=== PATIENT | male | born 1965 | race African-American/Black ===

== ENCOUNTER 2024-07-14 09:05 | Emergency (ER) | payer OTHER, SELFPAY ==
[2024-07-14 09:17] VITALS: BP 181/109; PULSE 87; RESP 16; TEMP 36.6; O2SAT 100
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
--- OUTSIDE RECORDS SUMMARY | 2024-07-14 09:19 | XMS_ITS | Encounter Summary ---
Author Name [facility] [place] Organization [facility] [place] [facility] [place] Address [address] [place] [address] Support Name Relationship Address Phone JDAEN BREAUX Emergency Contact [address] [place] [address] [phone] CORINE BREAUX Next of [facility] [place] Selected Encounter This section includes the information on record at [place] for the Encounter. Date/Time Encounter Type Encounter Description Reason Provider Source Sep 29, 2023 10:00 AM CASE MANAGEMENT HCHV/HCMI INDIV ICD-10-CM Z59.02 Unsheltered homelessness MONTEZ TOMAS Evelio Encounter Template Text not used by [place] Assessments - Encounter Diagnoses This section includes the primary and secondary diagnoses documented for the Encounter. Date/Time Primary/Secondary Diagnosis Diagnosis Name Provider Source Sep 29, 2023 10:46 AM PRIMARY Unsheltered homelessness LENA TOMAS [facility] Encounter Notes: All associated encounter notes This section contains the clinical notes associated to the Encounter. Date/Time Encounter Note(s) Provider Source Sep 29, 2023 10:30 AM MENTAL HEALTH STUDIO OPERATIONS ENGINEER IN CHARGE NOTE: LOCAL TITLE: HCHV CASE MANAGEMENT STL STANDARD TITLE: MENTAL HEALTH STUDIO OPERATIONS ENGINEER IN CHARGE NOTE DATE OF NOTE: SEP 29, 2023@10:30 ENTRY DATE: SEP 29, 2023@10:30:53 AUTHOR: LENA TOMAS EXP COSIGNER: URGENCY: STATUS: COMPLETED HCHV CASE MANAGEMENT STL Has ADDENDA HOMELESS PROGRAMS HCHV Case Management Start Time: 1000 End Time: 1030 Total time: 30min Contact Number: n/a Diagnosis: z59. Mental Status Exam APPEARANCE: Dressed appropriate for the weather SPEECH: Normal AFFECT: congruent w/topic discussion MOOD: okay THOUGHT PROCESS: Clear, logical HALLUCINATIONS/DELUSIONS: Denies @ this time SUICIDALITY/HOMICIDALITY: Denies @ this time LEVEL OF ALERTNESS: Alert x 3 Mental Health: denies any current SI/HI or any immediate medical needs at this time NARRATIVE: presented to [facility] for HUDVASH screening appt on his bicycle which did not have a lock which brought his bike inside & maintained w/him during visit, states he not want anyone stealing his bike as this is his only transportation, underwriter solicitation director provided empathetic listening; underwriter solicitation director informed GPD program/liaisons have attempted to speak w/ w/no contact; states he fell out w/the individuals he was hanging around & who was letting him use their phone; underwriter solicitation director informed both HUDVASH & GPD programs will speak w/him today to complete program screenings, verbalized understanding stating i have nowhere to go & has no concerns waiting; underwriter solicitation director asked did he f/u w/eligibility dept to complete his means test, states completing test; states he was hungry which underwriter solicitation director offered a frozen meal accepted offer & was provided w/a meal & peanut butter crackers, expressed appreciation w/no questions/concerns PLAN FOR FOLLOW UP: [ ]Plan to meet again on the following date/time: [ ]No future session planned at this time [x]Other: to complete HUDVASH/GPD program screenings; hc staff to f/u w/; to contact dept as needed SAFETY REVIEW: The following health and safety issues were reviewed during session: [x] is aware that he can contact the 's Crisis hotline 24 hours per day at , press 1 for Veterans. Personal Safety: [x] indicated awareness that for life threatening emergencies, should call 911 and go to the nearest emergency department. Patient Education Documentation: [x] The patient was ready to learn when education was offered [x] Level of Understanding: good [X] Patient verbally acknowledged understanding of the education topic /MAGY Atkins, LIV Clinical Department Head [employer] Signed: 09/29/2023 10:46 09/29/2023 ADDENDUM STATUS: COMPLETED 09-29-23 1050 underwriter solicitation director offered CERS/TJC referral, declined offer stating he has too many enemies in [place] area, stating that would be a bad situation no thanks underwriter solicitation director affirmed 's choice /MAGY Atkins, LIV Clinical Department Head [employer] Signed: 09/29/2023 10:58 LENA TOMAS [facility]
--- OUTSIDE RECORDS SUMMARY | 2024-07-14 09:19 | XMS_ITS | Continuity of Care Document ---
Author Name [facility] Organization [facility] Care Team Providers Care Film Library Clerk Name Role Phone [facility] Unavailable Unavailable Problems Combined list of problems from Department of Defense and Veterans Affairs facilities. It does not include entries that were removed or entered in error. Problem Status Onset Date Problem Type Date of Resolution Comments Source [facility] DEP NEC/NOS-CONTIN Inactive 4 Condition 07/08/1995 Department of Veterans Affairs (VA) CANNABIS ABUSE-EPISODIC Inactive 4 Condition 07/24/1995 [facility] Affairs (VA) COCAINE DEPEND-CONTIN Inactive 4 Condition 07/24/1995 [facility] of Veterans Affairs (VA) + HX POLYSUBSTANCE ABUSE Active Condition July 24, 1995 Entered By: JADEN CLARK Comment: DETOX 9 [facility] Fatigue Active Condition July 23 96 Entered By: JADEN CLARK Comment: SYSTOLIC MURMURMay 1995 Entered By: JADEN CLARK Comment: R/O IHSS [facility] Homeless ([facility] [id number]) Active Condition [facility] NKA Active Condition [facility] Diagnosis: ICD-10-CM Z59.01 Sheltered homelessness Active Diagnosis [facility] Diagnosis: ICD-10-CM Z59.00 Homelessness unspecified Active Diagnosis [facility] Diagnosis: ICD-10-CM Z59.02 Unsheltered homelessness Active Diagnosis [facility] Diagnosis: ICD-10-CM Z56.9 Unspecified problems related to employment Active Diagnosis [facility] Diagnosis: ICD-10-CM Z59.9 Problem related to housing and economic circumstances, unsp Active Diagnosis [facility] Diagnosis: ICD-10-CM Z59.89 Other problems related to housing and economic circumstances Active Diagnosis [facility] Encounters Combined list of: 1) Encounters from Department of Veterans Affairs facilities going backup to the last 18 months, not all VA inpatient encounters are included; 2) Encounters from the Department of Defense facilities going backup to 280 months. Location Location Details Encounter Type Encounter Number Reason For Visit Attending Provider ADM Date DC Date Status Disposition Source [facility] Outpatient Encounter [id number] 07/30 [facility] [address] [address] [facility] PSYCHOED SVC, PER 15 MIN [id number] Diagnos is: ICD-10- CM Z59.89 Other problem s related to housing and economi c circums REYNALDO Riley [facility] 07/[address] [facility] [place] [facility] PSYCHOED SVC, PER 15 MIN [id number] Diagnos is: ICD-10- CM Z59.02 Unshelt ered homeREYNALDO Amato [facility] 09/[address] [facility] [facility] HC PRO PHONE CALL 5-10 MIN [id number] Diagnos is: ICD-10- CM Z59.9 Problem related to housing and economi c circums ricardo ann DARRY L L 09/24 [address] [facility] Outpatient Encounter [id number] 09/24 [facility] Encounter [id number] 09/27 [facility] Outpatient Encounter [id number] 09/27 [facility] CASE MANAGEMENT [id number] Diagnos is: ICD-10- CM Z59.02 Unshelt ered homeles REYNALDO Fortune [facility] 09/[address] [facility] PROGRAM INTAKE ASSESSMENT [id number] Diagnos is: ICD-10- CM Z59.02 Unshelt ered homeles sness GRZEGORZ SCHERER ONDA 09/[address] [facility] CASE MANAGEMENT [id number] Diagnos is: ICD-10- CM Z59.02 Unshelt ered homeles sness RUFUS DONATO 09/28 [facility] [address] [address] [facility] COMMUNITY/ WORK REINTEGRAT ION [id number] Diagnos is: ICD-10- CM Z56.9 Unspeci fied problem s related to employm COLE Woodruff EGORY 09/[address] [facility] Outpatient Encounter [id number] 10/04 [facility] [place] [address] [facility] CASE MANAGEMENT [id number] Diagnos is: ICD-10- CM Z59.00 Homeles sness unspeci fied NADEEM PANCHAL PATRICIA P 10/[address] [facility] CASE MANAGEMENT [id number] Diagnos is: ICD-10- CM Z59.00 Homeles sness unspeci fied ABDULKADIR,NADEEM PATRICIA P 10/[address] [facility] Outpatient Encounter [id number] ELZA LANZA ISEULALIA SILVA 10/04 [facility] [place] [address] [facility] HEALTH ASSESS BY NON-MD [id number] Diagnos is: ICD-10- CM Z59.02 Unshelt ered homeles sness NADEEM PANCHAL PATRICIA P 10/[address] [facility] Outpatient Encounter [id number] NADEEM PANCHAL PATRICIA P 10/05 [facility] Outpatient Encounter [id number] 10/06 [facility] Outpatient Encounter [id number] 10/06 [facility] Outpatient Encounter [id number] 10/15 [facility] [place] [facility] Outpatient Encounter [id number] Diagnos is: ICD-10- CM Z59.00 Homeles sness unspeci fied ARELI,CAT HERINE R 10/[address] [facility] Outpatient Encounter [id number] 10/15 [facility] Outpatient Encounter [id number] 10/25 [facility] Outpatient Encounter [id number] 10/26 [facility] Outpatient Encounter [id number] Diagnos is: ICD-10- CM Z59.01 Assisted ed homeles sness ARELI,CAT HERINE R 11/[address] [facility] Outpatient Encounter [id number] 11/04 [facility] HC PRO PHONE CALL 5-10 MIN [id number] Diagnos is: ICD-10- CM Z59.01 Assisted ed homeles sness GERMÁN SINGLETON R 11/15 [facility] [place] [facility] PSYCHOED SVC, PER 15 MIN [id number] Diagnos is: ICD-10- CM Z59.00 Homeles sness unspeci fied ALEK DOAN L 11/[address] [facility] Outpatient Encounter [id number] ALEK DOAN L 11/19 [facility] [place] [facility] Outpatient Encounter [id number] Diagnos is: ICD-10- CM Z59.01 Assisted ed homeles sness GERMÁN SINGLETON R 12/[address] [facility] Outpatient Encounter [id number] 12/06 [facility] [place] [facility] Outpatient Encounter [id number] Diagnos is: ICD-10- CM Z59.01 Assisted ed homeles sness GERMÁN SINGLETON R 12/[address] [facility] Outpatient Encounter [id number] 12/15 [facility] [place] [facility] HC PRO PHONE CALL 5-10 MIN [id number] Diagnos is: ICD-10- CM Z59.01 Assisted ed homeles sness ARELIGERMÁN DAVISINE R 02/[address] [facility] Outpatient Encounter [id number] Diagnos is: ICD-10- CM Z59.01 Assisted ed homeles sness GERMÁN SINGLETON HERINE R 02/[address] [facility] Outpatient Encounter [id number] Diagnos is: ICD-10- CM Z59.01 Assisted ed homeles sness ARELI,CAT HERINE R 02/[address] [facility] Outpatient Encounter [id number] 02/28 [facility] CASE MANAGEMENT [id number] Diagnos is: ICD-10- CM Z59.01 Assisted ed homeles sness ARELIGERMÁN DAVIS HERINE R 03/03 [address] [facility] PH1 ASSMT&MGMT NQHP 5-10 [id number] Diagnos is: ICD-10- CM Z59.01 Assisted ed homeles sness GERMÁN SINGLETON HERINE R 03/18 [address] [facility] Outpatient Encounter [id number] 03/21 [facility] En[facility] [id number] 03/22 [facility] Encounter [id number] 03/31 [facility] PH1 ASSMT&MGMT NQHP 11-20 [id number] Diagnos is: ICD-10- CM Z59.01 Assisted ed homeles sness ARELI,CAT HERINE R 04/[address] [facility] CASE MANAGEMENT [id number] Diagnos is: ICD-10- CM Z59.01 Assisted ed homeles NADEEM Rendon P 04/[address] [facility] Outpatient Encounter [id number] 04/04 [facility] Outpatient Encounter [id number] 04/08 [facility] Outpatient Encounter [id number] 04/13 [facility] [facility] PH1 ASSMT&MGMT NQHP 5-10 [id number] Diagnos is: ICD-10- CM Z59.01 Assisted ed homeles GERMÁN Rangel R 04/[address] [facility] Outpatient Encounter [id number] 04/22 [facility] Outpatient Encounter [id number] 06/09 [facility] Outpatient Encounter [id number] 06/18 [facility]
--- OUTSIDE RECORDS SUMMARY | 2024-07-14 09:19 | XMS_ITS | Encounter Summary ---
Author Name [facility] Organization [facility] [facility] [place] Address [address] [place] [address] Support Name Relationship Address Phone JADEN BREAUX Emergency Contact [address] [place] [address] [phone] CORINE BREAUX Next of [place], [place] Selected Encounter This section includes the information on record at [place] for the Encounter. Date/Time Encounter Type Encounter Description Reason Pro vider Source IHE Encounter Template Text not used by [facility]
--- OUTSIDE RECORDS SUMMARY | 2024-07-14 09:19 | XMS_ITS | Encounter Summary ---
Author Name [facility] [place] Organization [facility] [place] Address [address] [place] [id number] Support Name Relationship Address Phone JADEN TENORIO Emergency Contact [address] [place] [address] CORINE TENORIO Next of [facility] [place] Selected Encounter This section includes the information on record at [place] for the Encounter. Date/Time Encounter Type Encounter Description Reason Provider Source Sep 29, 2023 11:52 AM COMMUNITY/WORK REINTEGRATION HOMELESS [place] COM EMP SVC INDIV ICD-10-CM Z56.9 Unspecified problems related to employment BRITT JERRY IHE Encounter Template Text not used by [place] Assessments - Encounter Diagnoses This section includes the primary and secondary diagnoses documented for the Encounter. Date/Time Primary/Secondary Diagnosis Diagnosis Name Provider Source Sep 29, 2023 12:12 PM PRIMARY Unspecified problems related to employment ELADIO JERRY [facility] Encounter Notes: All associated encounter notes This section contains the clinical notes associated to the Encounter. Date/Time Encounter Note(s) Provider Source Sep 29, 2023 11:53 AM CWT NOTE: LOCAL TITLE: HOPE VOC DEV STL STANDARD TITLE: CWT NOTE DATE OF NOTE: SEP 29, 2023@11:53 ENTRY DATE: SEP 29, 2023@11:53:08 AUTHOR: JANET JERRY EXP COSIGNER: URGENCY: STATUS: COMPLETED DATE:09/29/23 NAME: Hien Tenorioodmynor KeithNima TIME OF APPOINTMENT: 1150 hrs. TIME SPENT: 12 minutes PRESENTING PROBLEM/DIAGNOSIS: ICD-10-CM Z56.9 HVECS: Initial Contact Orientation Invite COMMUNICATION: [x] Logical [] Tangential [] Good Insight [] Good Judgement CONCENTRATION: [x] Normal [] Inattentive [] Distractible [] Confused THOUGHTS: [x] Goal-directed [] Circumstantial [] Loose associations ATTITUDE: [x] Cooperative [] Uninterested [] Resistant [] Hostile [] Irritable [] Suspicious [] Paranoid AFFECT & MOOD: [x] Normal [] Anxious [] Depressed [] Labile [] Euphoric Eligibility for services revealed that is: [ ] At Risk For Homelessness [X] Homeless [ ] Housed Comment CLINICAL REMINDERS DUE:Yes VA Video Connect: [X] Access and experience using VVC technology [] Access with double end tenoner operator using VVC technology [] No access to VVC technology Documentation: [X] DD214 [] Valid State ID [] Valid Fruit Picker's License []Social Security Card Comment: HISTORY: Branch of Service: [X] [employer] [] [employer] [] [employer] [] [employer] [] [place] [] [employer] 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 Introductions made with , Casino Beverage Server introduced self and overview my role as the Community Real Time Trader. [place] confirmed that he was interested in attending the next orientaton. He was scheduled for the 7/25/24 Orientation at 1300 hrs. at the [facility] to be facilitated by manual writer. [place] had no further concern. Casino Beverage Server summarized conversation and call was ended. [place] is not on high risk list. Review of records does not indicate any sign of deterioration of mood, suicidal or homicidal ideation, or other signs of decompensation. /solomon/ JANET JERRY Community Real Time Trader Signed: 09/29/2023 12:12 Receipt Acknowledged By: 10/08/2023 07:23 /solomon/ ADINA SCHNEIDER Voc Rehab Supervisor Shaving And Splitting JANET JERRY [facility]
--- OUTSIDE RECORDS SUMMARY | 2024-07-14 09:19 | XMS_ITS | Encounter Summary ---
Author Name [facility] [place] Address [address] [place] [id number] Support Name Relationship Address Phone JADEN TENORIO Emergency Contact [address] [place] [address] CORINE TENORIO Next of [facility] [place] Selected Encounter This section includes the information on record at [place] for the Encounter. Date/Time Encounter Type Encounter Description Reason Provider Source Oct 05, 2023 02:47 PM MH HEALTH ASSESS BY NON-MD OLGA/MELISSA RENATO ICD-10-CM Z59.02 Unsheltered homelessness KRISTINE RUIZ IHE Encounter Template Text not used by [place] Assessments - Encounter Diagnoses This section includes the primary and secondary diagnoses documented for the Encounter. Date/Time Primary/Secondary Diagnosis Diagnosis Name Provider Source Oct 06, 2023 05:05 PM PRIMARY Unsheltered homelessness ZULEMA RUIZ [facility] [place] [facility] Encounter Notes: All associated encounter notes This section contains the clinical notes associated to the Encounter. Date/Time Encounter Note(s) Provider Source Oct 05, 2023 02:47 PM MENTAL HEALTH TREATMENT PLAN NOTE: LOCAL TITLE: [facility] ADMISSION STL STANDARD TITLE: MENTAL HEALTH TREATMENT PLAN NOTE DATE OF NOTE: OCT 05, 2023@14:47 ENTRY DATE: OCT 05, 2023@14:53:54 AUTHOR: ZULEMA RUIZ EXP COSIGNER: URGENCY: STATUS: COMPLETED [facility] ADMISSION STL Has ADDENDA [facility] Supported Housing (HUD-VASH) Program ADMISSION 'S NAME: Dorinda Tenorio Start Time: 1447 Stop Time: 1500 Duration of visit: 13 minutes Location: [place] [address] HUD-VAS PROGRAM: The [facility] Supportive Housing (HUD-VASH) program combines Housing Choice/Project-Based Voucher rental assistance (HUD/Housing Authority) with intensive [place] case management and clinical services to serve homeless, disabled Veterans and their families. 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 Eligibility submitted to Eligibility on (date): Sex Offender Status: Denies Homeless History (should go back three years): 07/2023 - Present: VACOs in the [facility] area 02/2023 - 07/2023: Staying with a friend and his sister, [place], [place] 06/2022-02/2023: Staying with sister in [place], [place] 08/2019 - 06/2022: Had my own place in [place], [place] is Homeless: [x]Yes []No Chronically homeless: [] Yes [X] No Verification of Homelessness: [] Group Home letter [X] CPRS chart review [] Letter from family/friend [] First hand observation [] Self certification [] Other: [place] NEED for intensive case management services [X] Yes [] No Relevant Admission Diagnoses (Homeless, Schizophrenia, Alcohol TONYA, etc): [X] History of Polysubstance Use [] [] Young Adult (18-23yo) Transitional Needs [] Identified needs: [X] Not applicable Is this the [place]'s first admission to [facility]? [X] Yes [] No Previous [facility] admissions: [X] Based on the above eligibility criteria, is determined to be eligible and clinically appropriate for VASH program and has been referred to the Housing Authority for final assessment for voucher eligibility. DATE of ADMISSION: 10/05/2023 ADDITIONAL DOCUMENTATION [X] HOMES Admission Completed [X] HOPE [place] DAVID Signed [] HMIS DAVID Signed [] Brief HMIS Questionnaire completed [] Additional ROIs (friends, family, etc): [facility] Voucher [X] Housing Choice Voucher [] Veterans Residence (Project-based) Public Housing Authority [X] [facility] [] [facility] [] [facility] [] [facility] [] [place] [] [facility] Year of Voucher: [X]2023 ORIENTATION Type of Service: Education/Orientation received and reviewed: [X] Orientation to HOPE Program/[facility] policies and procedures [X] [place] Handbook which includes the following: *HOPE Programs Alexander and Values/Program expectations *Patient Rights and Responsibilities *Case Management participation expectations & discharge criteria *Health and Safety Procedures * Feedback & Grievance Process *[facility] Contact Numbers & [place] resource listing [X] [place] reviewed [facility] Program Expectations which includes the 's commitment to: *Abide by rules of the Housing Authority *Work with [facility] case reviewer on a plan of care *Meet regularly with case reviewer (weekly to monthly based on need and housing status) *Use housing only as a personal residence *Refrain from damaging the property and perform normal maintenance expected of renters *Work with CM to ensure bills are paid in a timely fashion *Ensure utilities/rent are paid, as this may affect your voucher *Submit to a criminal background screening through Housing Authority [X] Additional resources/services available to the through the [facility] Programs: * [facility] Addiction Therapist services and relapse prevention groups. * [facility] Peer Support services * Employment/Vocational Support * Occupational Therapy Services * Nutrition Support PHYSICAL HEALTH AND NUTRITION SCREENING ---- Primary Care Provider: { X} VA Provider: assigned to [facility] { } Non-VA provider: { } No provider Date of last visit with above provider: reported he planned to call [facility] on this date to schedule PCP appointment. If the [place] has no provider or it has been more than 12 months since the last visit, please encourage/assist the with scheduling PCP appointment. Relevant Medical Hx: denied chronic medial conditions Date of last PPD/TB skin test per CPRS: unknown Have you ever had a positive TB test? Denied Have you experienced any of the following in the last 3 weeks: [] night sweats [] coughing lasting more than 3 weeks [] coughing up blood [] unexplained weight loss [] hoarseness [] persistent fever [] fatigue [X] denies all of the above Symptoms at this time. Urgent medical needs identified, such as: { } Left sided chest pain with sweating, shortness of breath, or nausea { } Worsening shortness of breath { } Persistent swelling in your feet { } Blood in urine/stool { } Unexplained weight loss { } Coughing up blood { } Other: {X} none reported If yes to any of the above: { } Advised to go to the ED. Outcome: { } Other: Does the report chronic pain? [ ] Yes [X] No If so, on a scale of one to ten (1 being the least and 10 being the worst) how does the [place] rate pain? Does [place] report that pain is being managed well at this time? [ ] Yes [ ] No Does the [place] want a referral to help manage pain? [a score >4 and not well managed pain=recommendation for a pain assessment and referral to PCP.] { } Yes { } Not at this time Nutrition screening: Does the report any of the following issues: 1. Have you lost or gained 10 pounds or more in the last 3 months without trying? [ ] Yes [X ] No 2. Have you gained 10 pounds or more in the last 2 weeks due to fluid? [ ] Yes [X] No 3. Has food intake declined due to loss of appetite, digestive problems, dental problems or swallowing difficulty? [ ] Yes [X] No 4. Food Allergies? [ ] Yes [X ] No 5. Eating habits or behaviors that may be indicators of an eating disorder, such as binging or inducing vomiting? [ ] Yes [X ] No If [place] answers yes to any of the nutrition risk screening questions, inform or assist the patient to call [phone], to schedule an appointment with a dietitian or consult Dietetic Services. If [place] answers yes , enter a Dietetic Services- Dietetics Outpt Disordered eating consult. Behavioral Health: [place] denied MH diagnosis. Though he reported history of with marijuana, cocaine, and alcohol abuse. Screenings completed with : [X] Patient Health Questionnaire (PHQ-9) [X] Beckham Suicide Severity Rating Scale (C-SSRS) Active High Risk Flag: []Yes [X] No If yes: [] Staffed with wool shearing supervisor [] Reviewed safety plan with (if applicable) [] Reviewed potential restrictions to care History of violence, suicide, etc. - include current and historic): [place] denied assault and/or suicide attempts. [place] agrees to manage these concerns by: [X] Attending all behavioral health appointments [] Taking medications as prescribed [] Attend/ begin substance abuse treatment [] Participate in support groups [] Follow my suicide safety plan [X] Meeting regularly with my case reviewer [x] Vet informed if he had a life threatening emergency, vet should call 911 and go to the nearest emergency department. Vet also aware that if he/she is in an emotional crisis the vet can call the crisis hotline 24 hours per day at , press 1 for Veterans. Personal Safety: [place] denied personal safety concerns at the time of the visit. agrees to manage these concerns by: [X] Maintain environmental awareness in community [X] Discuss any safety concerns with case reviewer [X] Keep list of emergency contacts [X] Practice fire safety [X] Does the [place] have access to a gun? []Y [X]N If yes, how is the gun stored?: [] Educated [place] on gun safety, including safe storage of weapons [X] Other: Admission into supportive housing program PERSONAL GOALS/INITIAL GOALS ENTERING [facility]: stated he would like help with finding housing and getting connected with foodstamps. would like to be connected to healthcare to follow his blood sugar issues and blood pressure. [X] and CM to complete a plan of care within 30 days of admission. Referrals/Consults/Actions Needed: would benefit from scheduling and attending PCP appointment to address healthcare and MH needs. TRANSITION/DISCHARGE PLANNING [place] may remain in [facility] program as long as (s)he has a need for and willingness to participate in treatment planning and case management services. [facility] treatment team will work with veterans through a team-based model toward their stated goals and achieving self-sufficiency, at which time they will graduate from the program. The understands that even if housing is lost, (s)he may still be eligible for case management services. The 's progress will be collaboratively assessed with input from the , identified support persons, and providers throughout program participation. Patient Education Documentation [X] The patient was ready to learn when education was offered. [X] Level of Understanding: Adequate [X] Patient verbally acknowledged understanding of the education topic. [X] Patient signed and dated the [facility] [place] Handbook Acknowledgement RHS Screen: RHS Screen Session Format: Face to Face Environmental Check Upon inquiry, the individual reports that the environment is safe to proceed. Informed Consent to Screen and Document The individual consents to proceed with screening. The individual consents to documentation of responses. PRIMARY SCREEN: In the past 12 months, how often did a current or former intimate partner (e.g., boyfriend, girlfriend, , , sexual partner): 1. Scream or curse at you Never 2. Insult or talk down to you Never 3. Threaten you with harm Never 4. Physically hurt you Never 5. Force or pressure you to have sexual contact against your will, or when you were unable to say no Never The HITS tool (items 1-4 above) is [place] copyright protected by Jan Blue MD, and the user has full rights to use it throughout the [place] system. PRIMARY SCREEN RESULT: The Primary Screen is NEGATIVE. The individual answered never to all forms of IPV above (i.e., answered never to all 5 items) The individual accepts education and/or resources: Yes - Offered verbal universal education about IPV EDUCATION: The individual indicated readiness to learn. Education offered during this session as noted above. The individual indicated understanding by asking relevant questions and making appropriate comments. No barriers to learning were observed or identified. Alcohol Use Screen (AUDIT-C): Alcohol Screen: SCREEN FOR ALCOHOL (AUDIT-C) An alcohol screening test (AUDIT-C) was negative (score=2). 1. How often did you have a drink containing alcohol in the past year? Consider a drink to be a 12 ounce can or bottle of regular beer, 8 ounces of malt liquor, a 5 ounce glass of table wine, or a 1.5 ounce shot of liquor (like scotch, gin, or vodka). Monthly or less 2. How many drinks containing alcohol did you have on a typical day when you were drinking in the past year? Three or four drinks 3. How often did you have six or more drinks on one occasion in the past year? Never Homelessness/Food Insecurity Screen: The [place] reports the following: Within the past 12 months, you worried whether your food would run out before you got money to buy more. Sometimes true Within the past 12 months, the food you bought just didn't last and you didn't have money to get more. Sometimes true agrees to referral to Social Work. Depression Screening: Perform PHQ-2 A PHQ-2 screen was performed. The score was 2 which is a negative screen for depression. Over the past two weeks, how often have you been bothered by the following problems? 1. Little interest or pleasure in doing things Not at all 2. Feeling down, depressed, or hopeless More than half the days Licensed Independent Provider notified of positive screen and need for follow-up. Name of provider notified: Zulema BHATTI, MOTOR SCOOTER REPAIRER /solomon/ ZULEMA RUIZ Front Services Agent ([facility]) Signed: 10/06/2023 17:05 10/07/2023 ADDENDUM STATUS: COMPLETED Staff Name: Zulema Ruiz [id number] 's Last Name: Jona [place]'s First Name: Dorinda SSN: [id number] Date of : 1965 HOMES Episode Start Date: 09/24/2023 [facility] Entry Form Staff Login (First and Last Name): Zulema Sara [place] Site (3-digit [facility] code plus 2-digit suffix, if any): [id number] Date this form completed (mm/dd/yy): 10/07/2023 [place]'s name (last name, first initial) Dorinda Tenorio Social Security Number [id number] Date Of 1965 1. Did the enter the [facility] program? Yes 1a. Is this being served under the authority provided by Section 9103, Expansion of Eligibility of [facility] , of Public Law [phone]? No 2. Date [place] entered [facility] Case Management (mm/dd/yy): 10/05/2023 3. Select the main reason why did not enter the [facility] program: Other (specify) Comment- Reason Why 4. What was the 's housing arrangement prior to program entry (location where the was sleeping prior to program entry)? Place not meant for habitation (e.g., a vehicle, an abandoned building, bus/train/subway station/airport or anywhere outside) Specify subsidy type: 5. How long did the [place] stay in the location where he/she was residing prior to program entry (location where the was sleeping prior to program entry)? More than one week, but less than one month 6. Was the living with others at that location? No 6a. spouse/significant other? 6b. children under 18 (list number)? 6c. related adults (list number)? 6d. unrelated adults (list number)? 7. How many months in total have you been homeless in the past three years? NOTE: If a [place] is homeless for any part of a given month, round up and count that period as one month of homelessness. 2 8. What is the total number of times you have been homeless on the street, in Emergency Group Home (ES), or Safe Haven (SH) in the past three years? 1 9. Is this [place] a homeless individual with a disabling condition based on one or more of the following: A physical, mental, or emotional impairment, including an impairment caused by alcohol or drug abuse, post-traumatic stress disorder, or brain injury that: (1) Is expected to be long-continuing or of indefinite duration; (2) Substantially impedes the individual's ability to live independently; and (3) Could be improved by the provision of more suitable housing conditions? Yes 10. What is the zip code of the location where the was residing prior to program entry (if unknown, use current location)? [id number] /solomon/ ZULEMA RUIZ Front Services Agent ([facility]) Signed: 10/07/2023 16:22 ZULEMA RUIZ [facility] Oct 05, 2023 01:00 PM ADVANCE DIRECTIVE NOTIFICATION AND SCREENING: LOCAL TITLE: ADVANCE DIRECTIVE NOTIFICATION AND SCREENING STANDARD TITLE: ADVANCE DIRECTIVE NOTIFICATION AND SCREENING DATE OF NOTE: OCT 05, 2023@13:00 ENTRY DATE: OCT 06, 2023@17:07:14 AUTHOR: ZULEMA RUIZ EXP COSIGNER: URGENCY: STATUS: COMPLETED ADVANCE DIRECTIVE NOTIFICATION AND SCREENING ADVANCE DIRECTIVE NOTIFICATION: Provided the patient or bank representative with written notification about advance directives. ADVANCE DIRECTIVE SCREENING: The patient or bank representative says the patient does not have an advance directive. Inquired if they want more information or assistance in completing a new advance directive form, and directed them to that assistance, if desired. /solomon/ ZULEMA RUIZ Front Services Agent ([facility]) Signed: 10/06/2023 17:07 ZULEMA RUIZ [facility] Oct 05, 2023 01:00 PM SUICIDE PREVENTION NOTE: LOCAL TITLE: [place]-SUICIDE SEVERITY RATING SCALE STANDARD TITLE: SUICIDE PREVENTION NOTE DATE OF NOTE: OCT 05, 2023@13:00 ENTRY DATE: OCT 06, 2023@17:07:46 AUTHOR: ZULEMA RUIZ EXP COSIGNER: URGENCY: STATUS: COMPLETED Beckham-Suicide Severity Rating Scale (C-SSRS Screener) 1. Over the past month, have you wished you were or wished you could go to sleep and not wake up? No 2. Over the past month, have you had any actual thoughts of killing yourself? No 3. Over the past month, have you been thinking about how you might do this? Response not required due to responses to other questions. 4. Over the past month, have you had these thoughts and had some intention of acting on them? Response not required due to responses to other questions. 5. Over the past month, have you started to work out or worked out the details of how to kill yourself? Response not required due to responses to other questions. 6. If yes, at any time in the past month did you intend to carry out this plan? Response not required due to responses to other questions. 7. In your lifetime, have you ever done anything, started to do anything, or prepared to do anything to end your life (for example, collected pills, obtained a gun, gave away valuables, went to the roof but didn't jump)? No 8. If YES, was this within the past 3 months? Response not required due to responses to other questions. I have reviewed the results of the Mental Health screens and have evaluated the patient. Based on the evaluation, the following disposition plan will be implemented: No further intervention is needed at this time. Contact information and instructions for accessing emergency services provided. /solomon/ ZULEMA RUIZ Front Services Agent ([facility]) Signed: 10/06/2023 17:08 ZULEMA RUIZ [facility]
[2024-07-14 09:44] VITALS: BP 159/96; PULSE 75; RESP 14; TEMP 37.2; O2SAT 100
--- OUTSIDE RECORDS SUMMARY | 2024-07-14 09:54 | XMS_ITS | Continuity of Care Document ---
Author Name [facility] Organization [facility] Care Team Providers Care Outreach Associate Name Role Phone [facility] Unavailable Unavailable Problems Combined list of problems [...] Entered By: JADEN CLARK Comment: DETOX 9 [facility] Fatigue Active Condition July 23 96 Entered By: JADEN CLARK Comment: SYSTOLIC MURMURMay 1995 Entered By: JADEN CLARK Comment: R/O IHSS [facility] Homeless ([facility] [id number]) Active Condition [facility] NKA Active Condition [facility] Diagnosis: ICD-10-CM Z59.01 Sheltered homelessness Active Diagnosis [facility] Diagnosis: ICD-10-CM Z59.00 Homelessness unspecified Active Diagnosis [facility] Diagnosis: ICD-10-CM Z59.02 Unsheltered homelessness Active Diagnosis [facility] Diagnosis: ICD-10-CM Z56.9 Unspecified problems related to employment Active Diagnosis [facility] Diagnosis: ICD-10-CM Z59.9 Problem related to housing and economic circumstances, unsp Active Diagnosis [facility] Diagnosis: ICD-10-CM Z59.89 Other problems related to housing and economic circumstances Active Diagnosis [facility] Encounters Combined list of: 1) Encounters from Department of Veterans Affairs facilities going backup to the last 18 months, not all VA inpatient encounters are included; 2) Encounters from the Department of Defense facilities going backup to 280 months. Location Location Details Encounter Type Encounter Number Reason For Visit Attending Provider ADM Date DC Date Status Disposition Source [facility] Outpatient Encounter [id number] [facility] [address] [facility] PSYCHOED SVC, PER 15 MIN [id number] Diagnos is: ICD-10- CM Z59.89 Other problem s related to housing and economi c circums REYNALDO Riley [facility] 07/[address] [facility] [address] [facility] PSYCHOED SVC, PER 15 MIN [id number] Diagnos is: ICD-10- CM Z59.02 Unshelt ered homeREYNALDO Amato [facility] 09/[address] [facility] [address] [facility] HC PRO PHONE CALL 5-10 MIN [id number] Diagnos is: ICD-10- CM Z59.9 Problem related to housing and economi c circums ricardo ann DARRY L L 09/24 [address] [facility] Outpatient Encounter [id number] 09[facility]24 [facility] [id number] 09[facility]27 [facility] En[facility] [id number] 09/27 [facility] [address] [facility] CASE MANAGEMENT [id number] Diagnos is: ICD-10- CM Z59.02 Unshelt ered homeles REYNALDO Fortune [facility] 09/[address] [facility] [address] [facility] PROGRAM INTAKE ASSESSMENT [id number] Diagnos is: ICD-10- CM Z59.02 Unshelt ered homeles sness GRZEGORZ SCHERER ONDA 09/[address] [facility] CASE MANAGEMENT [id number] Diagnos is: ICD-10- CM Z59.02 Unshelt ered homeles sness RUFUS DONATO 09/28 [facility] [address] [address] [facility] COMMUNITY/ WORK REINTEGRAT ION [id number] Diagnos is: ICD-10- CM Z56.9 Unspeci fied problem s related to employm COLE Woodruff EGORY 09/[address] [facility] Outpatient Encounter [id number] 10/04 [facility] [address] [facility] CASE MANAGEMENT [id number] Diagnos is: ICD-10- CM Z59.00 Homeles sness unspeci fied NADEEM PANCHAL PATRICIA P 10/[address] [facility] [address] [address] [facility] CASE MANAGEMENT [id number] Diagnos is: ICD-10- CM Z59.00 Homeles sness unspeci fied ABDULKADIR,NADEEM PATRICIA P 10/[address] [facility] Outpatient Encounter [id number] ELZA LANZA ISEULALIA SILVA 10/04 [facility] [address] [address] [facility] HEALTH ASSESS BY NON-MD [id number] Diagnos is: ICD-10- CM Z59.02 Unshelt ered homeles sness NADEEM PANCHAL PATRICIA P 10/[address] [facility] Outpatient Encounter [id number] NADEEM PANCHAL PATRICIA P 10/05 [facility] Outpatient Encounter [id number] 10/06 [facility] Outpatient Encounter [id number] 10/06 [facility] En[facility] [id number] 10/15 [facility] [facility] Outpatient Encounter [id number] Diagnos is: ICD-10- CM Z59.00 Homeles sness unspeci fied ARELI,CAT HERINE R 10/[address] [facility] Outpatient Encounter [id number] 10/15 [facility] Outpatient Encounter [id number] 10/25 [facility] Outpatient Encounter [id number] 10/26 [facility] Outpatient Encounter [id number] Diagnos is: ICD-10- CM Z59.01 Senior Care ed homeles sness ARELI,CAT HERINE R 11/[address] [facility] Outpatient Encounter [id number] 11/04 [facility] HC PRO PHONE CALL 5-10 MIN [id number] Diagnos is: ICD-10- CM Z59.01 Senior Care ed homeles sness GERMÁN SINGLETON R 11/15 [facility] [facility] [facility] PSYCHOED SVC, PER 15 MIN [id number] Diagnos is: ICD-10- CM Z59.00 Homeles sness unspeci fied ALEK DOAN L 11/[address] [facility] Outpatient Encounter [id number] ALEK DOAN L 11/19 [facility] [facility] Outpatient Encounter [id number] Diagnos is: ICD-10- CM Z59.01 Senior Care ed homeles sness GERMÁN SINGLETON R 12/[address] [facility] Outpatient Encounter [id number] 12/06 [facility] [facility] Outpatient Encounter [id number] Diagnos is: ICD-10- CM Z59.01 Senior Care ed homeles sness GERMÁN SINGLETON R 12/[address] [facility] Outpatient Encounter [id number] 12/15 [facility] [address] [facility] [facility] HC PRO PHONE CALL 5-10 MIN [id number] Diagnos is: ICD-10- CM Z59.01 Senior Care ed homeles sness ARELIGERMÁN DAVISINE R 02/[address] [facility] [facility] [facility] Outpatient Encounter [id number] Diagnos is: ICD-10- CM Z59.01 Senior Care ed homeles sness GERMÁN SINGLETON HERINE R 02/[address] [facility] [facility] [facility] Outpatient Encounter [id number] Diagnos is: ICD-10- CM Z59.01 Senior Care ed homeles sness ARELI,CAT HERINE R 02/[address] [facility] Outpatient Encounter [id number] 02/28 [facility] [facility] CASE MANAGEMENT [id number] Diagnos is: ICD-10- CM Z59.01 Senior Care ed homeles sness ARELIGERMÁN DAVIS HERINE R 03/03 [facility] [facility] [facility] PH1 ASSMT&MGMT NQHP 5-10 [id number] Diagnos is: ICD-10- CM Z59.01 Senior Care ed homeles sness GERMÁN SINGLETON HERINE R 03/18 [address] [facility] Outpatient Encounter [id number] 03/21 [facility] [id number] 03/22 [facility] En[facility] [id number] 03/31 [facility] PH1 ASSMT&MGMT NQHP 11-20 [id number] Diagnos is: ICD-10- CM Z59.01 Senior Care ed homeles sness ARELI,CAT HERINE R 04/[address] [facility] [address] [address] [facility] CASE MANAGEMENT [id number] Diagnos is: ICD-10- CM Z59.01 Senior Care ed homeles NADEEM Rendon P 04/[address] [facility] Outpatient Encounter [id number] 04/04 [facility] Outpatient [facility]counter [id number] 04/08 [facility] Outpatient Encounter [id number] 04/13 [facility] [facility] PH1 ASSMT&MGMT NQHP 5-10 [id number] Diagnos is: ICD-10- CM Z59.01 Senior Care ed homeles GERMÁN Rangel R 04/[address] [facility] Outpatient Encounter [id number] 04/22 [facility] Outpatient Encounter [id number] 06/09 [facility] Outpatient Encounter [id number] 06/18 [facility]
--- NOTE | 2024-07-14 10:19 | ED.SKABFB ---
HPI - Skin/Abscess/Foreign Bdy General Chief complaint: Skin/Abscess/Foreign Body Stated complaint: hands peeling from using cleaning supplies Time Seen by Provider: 07/14/24 09:21 Source: patient Mode of arrival: ambulatory Limitations: no limitations History of Present Illness HPI narrative: Patient is a 59-year-old male who presents the ED with report of skin peeling to his fingers. Patient reports he was cleaning black mold yesterday with cleaning whites. He was not wearing gloves. He woke up this morning with healing of some of his fingers. He states it is slightly painful. He became concerned and prompted here for further evaluation. Denies fevers. Denies any other complaints. Related Data Allergies Allergy/AdvReac Type Severity Reaction Status Date / Time No Known Allergies Allergy Verified 07/14/24 09:06 Review of Systems Review of Systems: All systems reviewed & are unremarkable except as noted in HPI. All systems reviewed & are unremarkable except as noted in HPI and below PMFSH Family History Family History Father Family history of diabetes mellitus in first degree relative Mother Family history of diabetes mellitus in first degree relative Exam Narrative: GENERAL: Well appearing, well-nourished, non-toxic, in no acute distress. HEAD: Normocephalic, atraumatic. RESPIRATORY: Airway patent, respirations nonlabored. CARDIOVASCULAR: Regular rate and rhythm. Radial pulses strong and easily palpable. MUSCULOSKELETAL: Moves all extremities. No gross deformities. SKIN: Warm, dry, normal color. Scattered areas of peeling and dry skin to several fingers, distal fingertip pads, palm. No signs of infection. NEURO: A&O X3. Speech clear. PSYCHIATRIC: Appropriate mood and affect. Normal interaction. Course Vital Signs Vital signs: Vital Signs Temperature 97.9 F 07/14/24 09:17 Pulse Rate 87 07/14/24 09:17 Respiratory Rate 16 07/14/24 09:17 Blood Pressure 181/109 H 07/14/24 09:17 Pulse Oximetry 100 07/14/24 09:17 Oxygen Delivery Room Air 07/14/24 09:17 Temperature 98.9 F 07/14/24 09:44 Pulse Rate 75 07/14/24 09:44 Respiratory Rate 14 07/14/24 09:44 Blood Pressure 159/96 H 07/14/24 09:44 Pulse Oximetry 100 07/14/24 09:44 Oxygen Delivery Room Air 07/14/24 09:17 MDM - Skin/Abscess/Foreign Bdy MDM Narrative Medical decision making narrative: Exam consistent with irritant contact dermatitis. Patient's hands were soaked in cleaning solution here. Advised to keep hands moisturized and lotioned, will prescribe antibiotic ointment as needed. Given return precautions. Discharged in stable condition. Medical Records Attestation: I reviewed the patient's medical records. Discharge Plan Discharge Clinical Impression: Irritant contact dermatitis due to chemical Patient Disposition: Home Condition: Stable Instructions: Antibiotic Form, Contact Dermatitis (ED) Additional Instructions: Recommend keeping hands moisturized with thick lotions/ointments to reduce drying out/cracking of skin. You may use antibiotic ointment as needed to areas of tenderness. Avoid further exposure to cleaning solutions or wear gloves when handling solutions. Follow-up with your primary care doctor for further evaluation if needed. Patient Language: Slovak Prescriptions: New mupirocin [Centany] 2 % ointment 1 applic topical BID Qty: 15 0RF Follow-up/Referrals: [facility] [Primary Care Provider] - Time of Disposition: 10:28
== END 2024-07-14 11:20 | disposition home or self-care (01) ==
PROVIDERS: Emergency Provider Physician Assistant
DX: T65.891A Toxic effect of other specified substances, accidental (unintentional), initial encounter (principal); L24.5 Irritant contact dermatitis due to other chemical products
CPT/HCPCS: 99283

== ENCOUNTER 2025-02-27 07:14 | Emergency (ER) | payer OTHER, SELFPAY ==
--- NOTE | ~2025-02-27 | XR_ITS ---
Examination: XR chest 2V Clinical History: SOB Comparison: None Technique: PA and Lateral Findings: Cardiomediastinal silhouette normal size and configuration. Lungs clear. No acute bony abnormality. IMPRESSION: 1. No acute cardiopulmonary findings. Reviewed, dictated and finalized at location [facility]
[2025-02-27 07:18] VITALS: BP 169/85; PULSE 88; RESP 18; TEMP 36.5; O2SAT 99
--- NOTE | 2025-02-27 07:35 | ED.GENADULT ---
HPI - General Adult General Chief complaint: Unspecified Stated complaint: work note Time Seen by Provider: 02/27/25 07:18 History of Present Illness HPI narrative: 60-year-old male presents to the emergency department for evaluation for cough congestion body aches fatigue with associated nausea vomiting diarrhea. Patient reports symptoms started approximately 2 days ago. Patient reports he is still having some symptoms. Patient reports he was instructed to present to the emergency department by his employer. Patient initially told the triage nurse that he only wanted the note to return to work. But during my initial interview patient states he does want some testing to be done. Patient is resting comfortably time of evaluation. Patient is a smoker. Related Data Allergies Allergy/AdvReac Type Severity Reaction Status Date / Time No Known Allergies Allergy Verified 02/27/25 07:28 Review of Systems Review of Systems: All systems reviewed & are unremarkable except as noted in HPI and below PMFSH Family History Family History Father Family history of diabetes mellitus in first degree relative Mother Family history of diabetes mellitus in first degree relative Exam Narrative: APPEARANCE: Well appearing, no pain, no distress, well-nourished. HEAD: normocephalic, atraumatic. EYES: PERRLA/EOMI, conjunctivae clear. NOSE: Normal no drainage EARS:TMS clear with good light reflex. THROAT: Pharynx clear, no exudate. NECK: Supple. No adenopathy, no masses. RESPIRATORY: Airway patent, respirations nonlabored. Clear to auscultation bilaterally, no rales, rhonchi, wheezing. CARDIOVASCULAR: Regular rate and rhythm without murmurs rubs or gallops. ABDOMINAL: Soft, nontender, nondistended, normal bowel sounds MUSCULOSKELETAL: Moves all extremities. Strength/ROM intact, No edema, No calf tenderness. NEURO: Alert. Cranial nerves II through XII intact. Good gait. Good coordination SKIN: Warm, dry. Normal Color Course Vital Signs Vital signs: Vital Signs Temperature 97.7 F 02/27/25 07:18 Pulse Rate 88 02/27/25 07:18 Respiratory Rate 18 02/27/25 07:18 Blood Pressure 169/85 H 02/27/25 07:18 Pulse Oximetry 99 02/27/25 07:18 Temperature 97.7 F 02/27/25 07:18 Pulse Rate 88 02/27/25 07:18 Respiratory Rate 18 02/27/25 07:18 Blood Pressure 169/85 H 02/27/25 07:18 Pulse Oximetry 99 02/27/25 07:18 [facility] Narrative Medical decision making narrative: 60-year-old male presents emergency department for evaluation for cough congestion body aches and fatigue. Chest x-ray shows no acute cardiopulmonary abnormality. Patient was negative for influenza RSV and for COVID. Patient most likely has a viral etiology. Patient was advised to take Tylenol ibuprofen for body aches and fatigue. Patient will be provided Zofran for nausea control. Differential Diagnosis Differential Diagnosis: COVID, RSV influenza, viral syndrome, pneumonia, gastritis, esophagitis Lab Data [facility] Lab Attestation statement: I personally reviewed the patient's lab results. Labs: Lab Results 02/27/25 Range/Units 07:41 Influenza A (RT-PCR) Negative (Negative) Influenza B (RT-PCR) Negative (Negative) RSV (RT-PCR) Negative (Negative) SARS-CoV-2 RNA (RT-PCR) Negative (Negative) Imaging Data Attestation: I personally reviewed and interpreted this imaging study as follows: My impression: chest x-ray: No acute cardiopulmonary abnormality Radiologist's impression: ITS Impressions Chest X-Ray 02/27/25 08:05 IMPRESSION: 1. No acute cardiopulmonary findings. Discharge Plan Discharge Clinical Impression: Nausea vomiting and diarrhea, Viral syndrome Patient Disposition: Home Condition: Stable Instructions: Antibiotic Form, Clear Liquid Diet (ED), Viral Syndrome (ED) Additional Instructions: Tylenol and ibuprofen for body aches and fatigue. Zofran as needed for nausea control. While you are still having nausea I do recommend you follow a clear liquid diet. Have close follow-up with your primary care physician. If you have any worsening symptoms then please call or return to the emergency department. if your symptoms are improved you are cleared to return to work. Patient Language: Arabic Prescriptions: New ondansetron 4 mg tablet,disintegrating 4 mg PO Q8H PRN (Reason: nausea and vomiting) Qty: 14 0RF No Action mupirocin [Centany] 2 % ointment 1 applic topical BID Qty: 15 0RF Follow-up/Referrals: [facility] [Primary Care Provider, Medical]
[2025-02-27 08:22] LABS: Influenza A QL RT-PCR Negative (Negative); Influenza B QL RT-PCR Negative (Negative); RSV RNA, RT-PCR Negative (Negative); SARS-CoV-2 RNA PCR Negative (Negative)
== END 2025-02-27 09:00 | disposition home or self-care (01) ==
PROVIDERS: Emergency Provider Emergency Medicine
DX: B34.9 Viral infection, unspecified (principal); R11.2 Nausea with vomiting, unspecified; R19.7 Diarrhea, unspecified; Z20.822 Contact with and (suspected) exposure to COVID-19; F17.200 Nicotine dependence, unspecified, uncomplicated
CPT/HCPCS: 71046; 87637; 99283